=== PATIENT | female | born 1955 | race Caucasian/White ===

== ENCOUNTER 2016-07-06 12:45 | Day surgery (SDC) | payer OTHER ==
[~2016-07-06] VITALS: Ht 160 cm; Wt 126.0 kg
[~2016-07-06 12:45] MED LIST: INSU100I13 SUBQ; LOSA25TA21 PO; Lactated Ringer's 1,000 ML IV ONE; MULT1CAP33 PO
[2016-07-06] MEDS ORDERED: Propofol 10,000 mCg/mL 20 mL Inj ONE (12:46)
[2016-07-06] MEDS ORDERED: ATOR20TA PO (14:09)
[2016-07-06 14:18] VITALS: BP 183/80; PULSE 100; RESP 16; O2SAT 98
[2016-07-06] MEDS ORDERED: Lactated Ringer's 1,000 ML IV SCH (14:29)
[2016-07-06] MEDS ORDERED: Ondansetron 2 mg/mL 2 mL Inj IVPUSH PRN (14:30)
[2016-07-06] MEDS ORDERED: MetoCLOpramide 5 mg/mL 2 mL Inj IVPUSH PRN (14:30)
[2016-07-06 15:20] VITALS: BP 109/54; PULSE 91; RESP 16; O2SAT 98
[2016-07-06 15:30] VITALS: BP 116/60; PULSE 89; RESP 16; O2SAT 98
[2016-07-06 15:40] VITALS: BP 144/69; PULSE 94; RESP 16; O2SAT 100
--- NOTE | 2016-07-06 17:26 | PCM.HPANE ---
Patient Data Surgeon Admitting Provider: Attending Provider:Mary Araujo MD Primary Care Physician:Bibi Soares MD Other Provider:Alisson Reeves Anesthesia Reason for Visit Other Constipation Ht/WT & BMI Height (Feet): 5 Height (Inches): 3 Weight (Kilograms): 126 Body Mass Index 49.00 Allergies Coded Allergies: No Known Drug Allergies (Verified Allergy, Unknown, 07/05/16) Past Anesthesia History Anesthesia History: Denies:: Abnormal Airway, Anesthesia Reactions, Difficult Intubation, Fam Anesthesia Reaction, Fam Malignant Hypertherm, Malignant Hyperthermia Diabetes History Hx Diabetes?: Yes Current Bedside Blood Glucose: 82 Medications Reported Medications Atorvastatin (Lipitor)20 Mg [id number] Mg PO DAILY Ref 0 07/06/16 Multivitamin (Multivitamins)1 Each Capsule1 Each PO 07/05/16 Losartan Potassium 25 Mg [id number] Mg PO DAILY 07/05/16 Insulin Glargine (Lantus U100 Solostar Insulin Pen)100 Unit/1 Ml Insuln.pen50 Unit SUBQ DAILY PRN DIABETES #1 PENINJ Ref 0 07/05/16 History History of ENT Problems?: No HEENT History: Denies:: Abnormal Airway Cataracts Difficult Intubation Dysphagia Glaucoma Hearing Problem Sinus Problem TMJ Denture Type: None Teeth Condition: Within Normal Limits Hx of Heart Problems?: No Cardiovascular History: Denies:: AICD Abdominal Aortic Aneurism Atrial Fibrillation Cardiac Surgery Chest Pain Congestive Heart Failure Coronary Artery Disease Edema Heart Murmur Hypertension Irregular Heartbeat Pacemaker Peripheral Vascular Rheumatic Fever Thrombophlebitis Valvular Heart Disease Hx of Respiratory Problem?: No Respiratory History: Denies:: Asthma COPD Chest Surgery Cough Dyspnea Emphysema Hemoptysis Oxygen Administration Pneumonia Pulmonary Embolism Tuberculosis Use of C-PAP Machine Use of Inhalers / NEBS Hx Neurologic Problems?: No Neurological History: Denies:: Alzheimer's Disease CVA Dementia Dizziness Headaches Multiple Sclerosis Parkinson's Disease Peripheral Neuropathy Seizures TIA Hx of GI Problems?: No Gastrointestinal History: Denies:: Cirrhosis Diverticulitis Gall Bladder Disease Gastroesphageal Reflux Gastrointestinal Bleeding Heartburn Hepatitis Hiatal Hernia Liver Disease Rectal Bleeding Hx of Problems?: No Genitourinary History: Denies:: HX of Hemodialysis Kidney Stones Urinary Tract Infection HX of Peritoneal Dialysis: No Female Hx: Denies:: Currently Endometriosis Pelvic Inflammatory Problems with Breasts? Skin History: Denies:: History Skin Disorders? Pressure Ulcers Hx Musculoskeletal Problems?: No Musculoskeletal History: Denies:: Back Injury Degenerative Joint Fibromyalgia Joint Replacement Musculoskeletal Trauma Myasthenia Gravis Osteoarthritis Rheumatoid Arthritis Systemic Lupus Hx of Psycho/Social Problems?: No Psycho Social History: Denies:: Anxiety Bipolar Disorder Hx Depression Suicide Attempt Hx Surgeries?: No Hx Any Other Health Problems?: No Other History: Denies:: Cancer Endocrine Disease Hospitalization Thyroid Disease History Blood Transfusions: Denies:: Accept Blood Products? Blood Transfuse Reaction Blood Transfusions Hx Diabetes: YesBedside Blood Glucose: 82 Stop/Bang Risk Assessment Category Category 1A: Patient has history of documented sleep apnea, and HAS NOT received any narcotic, sedative or anesthesia administration during this stay. Category 1B: Patient has history of documented sleep apnea, and HAS received any narcotic , sedative or anesthesia administration during this stay Category 2: Patient has SUSPECTED Obstructive Sleep Apnea, and HAS received any narcotic , sedative or anesthesia administration during this stay. Category 3: Patient has SUSPECTED Obstructive Sleep Apnea and HAS NOT received narcotic, sedative or anesthesia administration during this stay. Category 4: Outpatient in Procedural Areas with known sleep apnea or who screen positive for High Risk via the STOP/BANG questionnaire. Exam Exam General Appearance: Alert, Oriented X3, Cooperative, No Acute Distress HEENT/AIRWAY: MP 2, Neck Movement (FROM), Mouth Opening (3 FBMO) Lungs: Normal Air Movement Heart: Regular Rate/Rhythm Meds/Labs/Diagnostics Bedside Blood Glucose: 82 Plan Impression Patient chart reviewed, patient interviewed and anesthestic plan with risks, benefits, and alternatives discussed, and informed consent obtained. NPO per Anesth. Guidelines: Yes ASA Physical Status: ASA2 Mod Systemic Disease Anesthetic Plan: GA, MAC Bene/Risks/Altern/Consents: Yes HP Complete Prior to Induction: Yes Colby Worthy MD July 06, 2016 14:29
--- NOTE | 2016-07-06 17:26 | PCM.ANEP1 ---
Post Anesthesia PACU Phase 1 Assessment Vital Signs Vital Signs Date Time Temp Pulse Resp B/P Pulse Ox O2 Delivery O2 Flow Rate FiO2 07/06/16 15:40 94 16 144/69 100 Room Air 07/06/16 15:30 89 16 116/60 98 Nasal Cannula 2 07/06/16 15:20 91 16 109/54 98 Room Air 07/06/16 14:18 100 16 183/80 98 Room Air Anesthetic Administered: MAC Level of Alertness: Awake, talking WEATHERS's with Equal Strength: Yes Pain: No Nausea or Vomiting: No CV Function and Hydration: No Airway Device: none Oxygen Delivery: Room Air Lungs: Normal Air Movement Dermatome Level: Full Sensation PACU Phase 2 Assessment Complications: No Follow up Care: No Patient Instructions Provided: N/A Colby Worthy MD July 06, 2016 17:26
--- NOTE | 2016-07-07 11:21 | ENDO ---
[address] [address] ENDOSCOPY PROCEDURE PATIENT: JAQUELINE BARILLAS : 1955 MR#: [id number] ADMIT: 07/06/2016 JOB ID: [id number] DATE: 07/06/2016 PROCEDURE: Colonoscopy. INDICATIONS: Constipation. Please see Dr. Colby Worthy's anesthesia report for details regarding ASA classification, Mallampati score and medications. INSTRUMENT USED: PCF H 180 AL. PREPARATION QUALITY: Was fair. PROCEDURE DETAILS: After informed consent was obtained, the patient was brought into the GI suite, where he was placed on oxygen via nasal cannula and monitored with continuous pulse oximeter, telemetry and blood pressure monitoring. A time-out was performed. Then, he was placed in the left lateral decubitus position and medications were administered for sedation. Digital rectal examination was performed, which was unremarkable. The colonoscope was then inserted into the rectum and advanced under direct visualization to the distal ascending colon. Beyond this point, I was unable to advance the scope despite the application of abdominal pressure, as well as position change. The colonoscope was then withdrawn back to the rectum as the mucosa and lumen were examined. In the rectum, retroflexion was performed. Following retroflexion, remaining air in the rectum was suctioned, and the procedure was completed. FINDINGS: Normal colon from rectum to distal ascending colon. RECOMMENDATIONS: 1. Complete remainder of colon examination with air contrast barium enema. 2. Followup in GI clinic after air contrast barium enema. COMPLICATIONS: None. ESTIMATED BLOOD LOSS: 0.
== END 2016-07-06 23:59 | disposition home or self-care (01) ==
LOC: END 12:45
PROVIDERS: ATTEND Internal Medicine Gastroenterology
DX: K59.09 Other constipation (principal); Z80.0 Family history of malignant neoplasm of digestive organs; Z83.71 Family history of colonic polyps; Z53.8 Procedure and treatment not carried out for other reasons
CPT/HCPCS: 45378; J7120